=== PATIENT | male | born 1995 ===

== ENCOUNTER 2017-11-20 12:13 | Emergency (ER) | payer OTHER ==
[2017-11-20 12:24] VITALS: BMI 21.6
[2017-11-20] MEDS ORDERED: Sodium Chloride 0.9% 1,000 ML IV STA (13:13)
[2017-11-20] MEDS ORDERED: DiphenhydrAMINE 50 mg/ml Inj IVP STA (13:13)
[2017-11-20] MEDS ORDERED: DiphenhydrAMINE 50 mg/ml Inj ONE (13:47)
[2017-11-20 14:08] LABS: VENOUS BLOOD GAS BASE EXCESS 2.2 mmol/L (0.0-2.0); VENOUS BLOOD GAS PCO2 46 mmHg (40-60); VENOUS BLOOD GAS PO2 24 mm/Hg (30-55); VENOUS BLOOD PH 7.39 (7.32-7.43)
--- NOTE | 2017-11-20 14:12 | ED PDOC ---
HPI: Skin/Bite Injury Time Seen by Provider: 11/20/17 12:34 Chief Complaint (Nursing): Abnormal Skin Integrity Chief Complaint (Provider): Abnormal Skin Integrity History Per: Patient History/Exam Limitations: no limitations Onset/Duration Of Symptoms: Days (x2 weeks) Additional Complaint(s): Patient is a 22 y/o male with no significant past medical history who presents to the ED complaining of a progressively worsening rash on his torso, onset x2 weeks ago. Patient reports he was seen by his PMD who prescribed him a Medrol dose pack which he took without relief. He then followed up with Dr. Aparicio, photography spotter, who performed a skin biopsy and blood work x1 day ago and advised patient to take Xyzal. Patient reports this morning he took a cold shower and Xyzal as instructed and his rash improved in the evening; however, this morning a rash developed on his extremities and neck prompting ED visit. He denies fever, history of allergic reactions, pain, shortness of breath, or sore throat. Patient states he does get anxious around doctors and reports currently feeling anxious due to being surrounded by doctors and attributes his palpitations to this. PMD: Gavino Peters Past Medical History Reviewed: Historical Data, Nursing Documentation, Vital Signs Vital Signs: Last Vital Signs Temp 99.3 F 11/20/17 15:17 Pulse 93 H 11/20/17 15:17 Resp 20 11/20/17 15:17 BP 118/72 11/20/17 15:17 Pulse Ox 100 11/20/17 15:17 - Medical History PMH: No Chronic Diseases - Surgical History Surgical History: No Surg Hx - Family History Family History: States: Unknown Family Hx - Allergies Allergies/Adverse Reactions: Allergies Allergy/AdvReac Type Severity Reaction Status Date / Time No Known Allergies Allergy Verified 11/20/17 12:29 Review of Systems ROS Statement: Except As Marked, All Systems Reviewed And Found Negative Constitutional: Negative for: Fever ENT: Negative for: Throat Pain (sore throat) Cardiovascular: Positive for: Palpitations (attributed to anxiety ). Negative for: Chest Pain Respiratory: Negative for: Shortness of Breath Gastrointestinal: Negative for: Abdominal Pain Musculoskeletal: Negative for: Neck Pain, Arm Pain, Leg Pain Skin: Positive for: Rash (torso, extremities, neck) Psych: Positive for: Anxiety Physical Exam - Reviewed Nursing Documentation Reviewed: Yes Vital Signs Reviewed: Yes - Physical Exam Appears: Positive for: Non-toxic, No Acute Distress Head Exam: Positive for: ATRAUMATIC, NORMOCEPHALIC Skin: Positive for: Rash (scattered erythematous annular patches without central clearing, pustules, or scaling) ENT: Positive for: Other (bilateral tonsils are erythematous) Neck: Positive for: Normal, Painless ROM. Negative for: Supple Cardiovascular/Chest: Positive for: Regular Rate, Rhythm. Negative for: Murmur Respiratory: Positive for: Normal Breath Sounds. Negative for: Respiratory Distress Gastrointestinal/Abdominal: Positive for: Normal Exam, Soft. Negative for: Tenderness Back: Positive for: Normal Inspection. Negative for: L CVA Tenderness, R CVA Tenderness, Vertebral Tenderness (midline) Extremity: Positive for: Normal ROM. Negative for: Pedal Edema, Deformity Neurologic/Psych: Positive for: Alert, Oriented. Negative for: Motor/Sensory Deficits - Laboratory Results Result Diagrams: 11/20/17 13:55 11/20/17 13:55 - ECG O2 Sat by Pulse Oximetry: 99 (RA) Pulse Ox Interpretation: Normal Medical Decision Making Medical Decision Making: Time: 13:12 Initial Impression: Rash Initial Plan: --VBG --CMP --CBC with differential --PTT --PT/INR --Benadryl 50 mg IVP --Sodium Chloride 0.9% 1000 ml IV 1000 mls/hr --blood culture --urine c&s Time: 13:15 --Case discussed with Dr. Connie Aparicio (photography spotter) who agrees with care and states she does not have any diagnostic results from yesterday but believes patient may have coxsackie Time: 14:17 --On reevaluation rash is still present but improving 1442 Pending UA sample. Pt. further states that 2 weeks ago he used a new brand of THC oil and yesterday he stopped using it. Advised to stop using THC oil as it may be the source of his reaction. Scribe Attestation: Documented by Jaiden Saldaña, acting as a scribe for Salomón Ferrell PA-C Provider Scribe Attestation: All medical record entries made by the Scribe were at my direction and personally dictated by me. I have reviewed the chart and agree that the record accurately reflects my personal performance of the history, physical exam, medical decision making, and the department course for this patient. I have also personally directed, reviewed, and agree with the discharge instructions and disposition. Disposition - Clinical Impression Clinical Impression: Rash - Patient ED Disposition Is Patient to be Admitted: No - Disposition Referrals: Corin Dobbs [Outside] Disposition: Routine/Home Disposition Time: 15:33 Condition: IMPROVED Additional Instructions: MOJGAN LEIVA, thank you for letting us take care of you today. Your provider was Cheo Campbell III, DO and you were treated for POSS ALLERGIC REACTION, SOB. The emergency medical care you received today was directed at your acute symptoms. If you were prescribed any medication, please fill it and take as directed. It may take several days for your symptoms to resolve. Return to the Emergency Department if your symptoms worsen, do not improve, or if you have any other problems. Please contact your doctor or call one of the physicians/clinics you have been referred to that are listed on the Patient Visit Information form that is included in your discharge packet. Bring any paperwork you were given at discharge with you along with any medications you are taking to your follow up visit. Our treatment cannot replace ongoing medical care by a primary care provider outside of the emergency department. Thank you for allowing the [facility] team to be part of your care today. If you had an X-Ray or CT scan: A Radiologist will review the ED reading if any change in treatment is needed we will contact you. If you had a blood, urine, or wound culture: It will take several days for the results, if any change in treatment is needed we will contact you. If you had an STI test: It will take 48 hours for the results. Please call after 1 week if you have not heard back. Instructions: Skin Rash (DC) Forms: [employer] ([place]ian), [facility] ED School/Work Excuse
[2017-11-20 14:13] LABS: BASO % 0.4 % (0.0-2.0); EOS % 0.2 % (0.0-4.0); HEMOGLOBIN 15.9 g/dL (12.0-18.0); LYMPH # 2.3 K/uL (1.0-4.3); LYMPH % 22.4 % (20.0-40.0); MEAN CELL VOLUME 88.4 fl (80.0-94.0); MEAN CORPUSCULAR HEMOGLOBIN 30.3 pg (27.0-31.0); MEAN CORPUSCULAR HGB CONC 34.3 g/dL (33.0-37.0); MEAN PLATELET VOLUME 6.6 fl (7.2-11.7); MONO # 0.8 K/uL (0.0-0.8); MONO % 7.9 % (0.0-10.0); NEUT # 7.2 K/uL (1.8-7.0); NEUT % 69.1 % (50.0-75.0); NRBC % 0.1 % (0.0-0.0); RBC 5.24 Mil/uL (4.40-5.90); RED CELL DISTRIBUTION WIDTH 12.6 % (11.5-14.5); WHITE BLOOD COUNT 10.4 K/uL (4.8-10.8)
[2017-11-20 14:20] LABS: INR 1.1 (0.9-1.2); PARTIAL THROMBOPLASTIN TIME 29.7 Seconds (25.6-37.1); PROTHROMBIN TIME 11.9 Seconds (9.8-13.1)
[2017-11-20 14:33] LABS: ALB/GLOB RATIO 1.1 (1.0-2.1); ALBUMIN 4.1 g/dL (3.5-5.0); ALT/SGPT 35 U/L (21-72); AST/SGOT 28 U/L (17-59); BLOOD UREA NITROGEN 13 mg/dl (9-20); CALCIUM 8.9 mg/dL (8.4-10.2); GFR AFRICAN-AMERICAN > 60; GFR NON-AFRICAN AMERICAN > 60
[2017-11-20 15:31] LABS: SQUAMOUS EPITHIAL < 1 /hpf (0-5); URINE BILIRUBIN NEGATIVE (NEGATIVE); URINE BLOOD NEGATIVE (NEGATIVE); URINE CLARITY SLIGHTY-CLOUDY (Clear); URINE COLOR YELLOW (YELLOW); URINE GLUCOSE (UA) NEG (Normal); URINE LEUKOCYTE ESTERASE NEG Leu/uL (Negative); URINE PROTEIN NEGATIVE (NEGATIVE)
[2017-11-20 15:35] VITALS: O2SAT 99
[2017-11-20 15:39] VITALS: PULSE 92; RESP 18; TEMP 99.2
[2017-11-20 15:43] VITALS: BP 128/70
== END 2017-11-20 15:42 | disposition home or self-care (01) ==
LOC: H.ER 12:13
DX: R21 Rash and other nonspecific skin eruption (principal); F12.90 Cannabis use, unspecified, uncomplicated
CPT/HCPCS: 80053; 81003; 82803; 85025; 85610; 85730; 86308; 87040; 87070; 87086; 87430; 96374; 99284; J1200; J7030

== ENCOUNTER 2017-12-03 10:52 | Emergency (ER) | payer OTHER ==
[2017-12-03 10:52] VITALS: BMI 21.6
--- NOTE | 2017-12-03 12:47 | ED PDOC ---
HPI: Skin/Bite Injury Time Seen by Provider: 12/03/17 11:44 Chief Complaint (Nursing): Dizziness/Lightheaded Chief Complaint (Provider): Rash History Per: Patient History/Exam Limitations: no limitations Additional Complaint(s): Pt reports "acne' on chest and back X 3 days, started while taking Prednisone and Atarax for different previous rash that started 10 days ago. Denies itching , SOB, throat swelling, fever. Pt was started on Clindamycin topical by Photo Journalist for same rash. Pt also requesting HIV test because he had unprotected sex 1 month ago. Denies penile discharge, dysuria, hematuria, testicular pain. Pt has follow-up appointment with Photo Journalist on Thursday. Past Medical History Reviewed: Nursing Documentation, Vital Signs Vital Signs: Last Vital Signs Temp 99.9 F H 12/03/17 11:01 Pulse 101 H 12/03/17 11:01 Resp 17 12/03/17 11:01 BP 123/80 12/03/17 11:01 Pulse Ox 99 12/03/17 13:51 - Medical History PMH: No Chronic Diseases - Family History Family History: States: Unknown Family Hx - Social History Current smoker - smoking cessation education provided: No Alcohol: None - Allergies Allergies/Adverse Reactions: Allergies Allergy/AdvReac Type Severity Reaction Status Date / Time No Known Allergies Allergy Verified 12/03/17 11:23 Review of Systems Constitutional: Negative for: Fever, Chills Cardiovascular: Negative for: Chest Pain, Palpitations Respiratory: Negative for: Cough, Shortness of Breath Gastrointestinal: Negative for: Nausea, Vomiting, Abdominal Pain, Diarrhea Genitourinary Male: Negative for: Dysuria, Frequency, Incontinence, Hematuria, Penile Discharge, Scrotal Pain, Rash, Penile Pain Skin: Positive for: Rash, Lesions Neurological: Positive for: Dizziness. Negative for: Weakness, Numbness, Headache Physical Exam - Reviewed Nursing Documentation Reviewed: Yes Vital Signs Reviewed: Yes - Physical Exam Appears: Positive for: Well, No Acute Distress Head Exam: Positive for: ATRAUMATIC, NORMAL INSPECTION Skin: Positive for: Normal Color, Warm, Dry, Rash (Diffuse papular rash on chest and upper back, + med[place], no induration, no TTP, no crepitus, no vesicles) Eye Exam: Positive for: Normal appearance, EOMI, PERRL Neck: Positive for: Normal, Painless ROM, Supple Cardiovascular/Chest: Positive for: Regular Rate, Rhythm Respiratory: Positive for: Normal Breath Sounds. Negative for: Rales, Rhonchi, Wheezing Extremity: Positive for: Normal ROM Neurologic/Psych: Positive for: Alert, Oriented - Laboratory Results Result Diagrams: 12/03/17 13:20 12/03/17 13:20 - ECG O2 Sat by Pulse Oximetry: 99 Medical Decision Making Medical Decision Makin yo male with rash and STD testing. - labs - HIV Elevated WBC 15.7 noted, no fever, secondary to current Prednisone use. Disposition - Clinical Impression Clinical Impression: Rash - Disposition Disposition: Routine/Home Disposition Time: 14:36 Condition: STABLE Additional Instructions: FOLLOW-UP WITH PRETZEL TWISTER ON THURSDAY SCHEDULED. CONTINUE CLINDAMYCIN. Instructions: Skin Rash Forms: [employer] ([place])
[2017-12-03 13:32] LABS: URINE BACTERIA RARE (<OCC); URINE BILIRUBIN NEGATIVE (NEGATIVE); URINE BLOOD NEGATIVE (NEGATIVE); URINE CLARITY CLEAR (Clear); URINE COLOR STRAW (YELLOW); URINE GLUCOSE (UA) NEG (Normal); URINE LEUKOCYTE ESTERASE NEG Leu/uL (Negative); URINE PROTEIN 30 mg/dL (NEGATIVE); URINE UROBILINOGEN 0.2-1.0 mg/dL (0.2-1.0)
[2017-12-03 13:38] LABS: BASO % 0.2 % (0.0-2.0); EOS % 0.1 % (0.0-4.0); HEMOGLOBIN 16.5 g/dL (12.0-18.0); LYMPH # 1.2 K/uL (1.0-4.3); MEAN CELL VOLUME 88.4 fl (80.0-94.0); MEAN CORPUSCULAR HEMOGLOBIN 29.7 pg (27.0-31.0); MEAN CORPUSCULAR HGB CONC 33.6 g/dL (33.0-37.0); MEAN PLATELET VOLUME 6.3 fl (7.2-11.7); MONO # 0.6 K/uL (0.0-0.8); MONO % 4.1 % (0.0-10.0); NEUT # 13.7 K/uL (1.8-7.0); NEUT % 87.6 % (50.0-75.0); NRBC % 0.1 % (0.0-0.0); PLATELET COUNT 355 K/uL (130-400); RBC 5.55 Mil/uL (4.40-5.90); RED CELL DISTRIBUTION WIDTH 13.1 % (11.5-14.5); WHITE BLOOD COUNT 15.7 K/uL (4.8-10.8)
[2017-12-03 14:00] LABS: ALB/GLOB RATIO 1.2 (1.0-2.1); ALBUMIN 4.5 g/dL (3.5-5.0); ALT/SGPT 30 U/L (21-72); AST/SGOT 23 U/L (17-59); BLOOD UREA NITROGEN 18 mg/dl (9-20); CALCIUM 9.8 mg/dL (8.4-10.2); GFR AFRICAN-AMERICAN > 60; GFR NON-AFRICAN AMERICAN > 60
[2017-12-03 14:38] LABS: BANDS 1 % (0-2); LYMPHOCYTE 12 % (20-50); MONOCYTE 5 % (0-10); NEUTROPHIL 81 % (42-75); PLATELET ESTIMATE NORMAL (NORMAL); REACTIVE LYMPHOCYTES 1 % (0-0); TOTAL CELLS COUNTED 100
[2017-12-03 15:32] VITALS: BP 110/70; PULSE 78; RESP 19; TEMP 98.7; O2SAT 98
== END 2017-12-03 15:06 | disposition home or self-care (01) ==
LOC: H.ER 10:52
DX: R21 Rash and other nonspecific skin eruption (principal); Z11.3 Encounter for screening for infections with a predominantly sexual mode of transmission